=== PATIENT | male | born 1945 | race Caucasian/White ===

== ENCOUNTER 2017-03-28 18:59 | Observation (INO) ==
[2017-03-28] MEDS ORDERED: *HR* Dextrose 50 % in Water (Syg) 50 ML SYRINGE IVP ONE ×2 (19:58→21:31)
[2017-03-28] MEDS ORDERED: D5% in Water 1,000 ML IVC ONE (20:03)
[2017-03-28 20:31] LABS: Basophils # 0.1 K/mcL (0.0-0.2); Basophils % 0.8 %; Eosinophils # 0.1 K/mcL (0.0-0.6); Eosinophils % 0.9 %; Hematocrit 40.1 % (37.5-50.1); Hemoglobin 13.3 g/dL (12.9-16.9); Immature Granulocytes % 1.3 % (0-4); Lymphocytes # 1.5 K/mcL (0.6-4.6); Lymphocytes % 12.9 %; Mean Corpuscular HGB Conc 33.2 g/dL (31.6-35.5); Mean Corpuscular Hemoglobin 29.7 pg (28.0-33.3); Mean Corpuscular Volume 89.5 fL (83.0-100.0); Mean Platelet Volume 9.9 fL (9.4-12.4); Monocytes # 0.9 K/mcL (0.0-1.3); Monocytes % 7.7 %; Neutrophils # 8.9 K/mcL (1.6-8.9); Platelet Count 228 K/mcL (140-400); Red Blood Count 4.48 M/mcL (4.19-5.50); Segmented Neutrophils % 76.4 %
[2017-03-28 20:39] LABS: Prothrombin Time 11.2 Seconds (9.4-12.1)
[2017-03-28 20:47] LABS: BUN/Creatinine Ratio 21 (6-26); Blood Urea Nitrogen 15 mg/dL (8-23); Calcium 8.4 mg/dL (8.6-10.3); Carbon Dioxide 27 mEq/L (23-29); Chloride 104 mEq/L (98-107); Glucose 125 mg/dL (70-105); Osmolality,Calculated 290 (280-300); Potassium 3.6 mEq/L (3.5-5.1); Sodium 139 mEq/L (136-145); eGFR For Non-African Americans > 60 (> 60)
[2017-03-28 21:13] LABS: Bilirubin,Urine Negative (Negative); Blood,Urine Negative (Negative); Clarity,Urine Clear (Clear); Color,Urine Yellow (Yellow); Glucose,Urine (UA) Normal (Normal); Ketones,Urine Trace mg/dL (Negative); Leukocyte Esterase,Urine Negative (Negative); Nitrite,Urine Negative (Negative); PH,Urine 5.5 pH Units (5.0-8.0); Protein,Urine Negative (Neg-Trace); Urobilinogen,Urine Normal (Normal)
--- NOTE | 2017-03-28 21:41 | Emergency Department Note ---
Disposition Clinical Impression: Hypoglycemia Disposition: Admitted As Inpatient Condition: Fair General Adult HPI - General Chief complaint: ED Weakness Stated complaint: Hypoglycemia, 26 per EMS on arrival Source: patient, EMS Mode of arrival: EMS Limitations: no limitations Nursing Notes Reviewed: Yes Vital Signs Reviewed: Yes - History of Present Illness HPI Narrative: Patient presents to the ED via EMS with report of hypoglycemia. Per EMS initial fingerstick glucose was 26. They gave him oral glucose and he then became less responsive. After establishing IV they were able to give him half an amp of D50 with improvement in glucose to 120. On arrival here patient's glucose was 50 and he was starting to have a decrease in level of consciousness. He was immediately given another half amp of D50 with improvement in his sugar to 185. Per EMS they were called by a neighbor who had stopped by to borrow a cigarette from him and found him barely conscious. Patient is a known insulin-dependent diabetic. Patient states he had been feeling "bad" all day. He had some lightheadedness, nausea and tingling sensations. States he thought his sugar was low so he gave himself several doses of insulin throughout the day, thinking this would increase his glucose. Per EMS he had Novolin 70/30 pens at home. Patient states he does not remember how much insulin he took each time today. States he has been taking anywhere from 30 to 120 units 3-4 times a day over the past week because his sugars have been anywhere from 50 into the 200s. He cannot tell me how much insulin he is supposed to be taking. He does admit to having trouble checking his sugars and administering his insulin at home and gets confused about his doses. He lives alone. Per report his neighbor has found him once before when he was severely hypoglycemic. He denies any recent illness. He has no current physical complaints. Pain Scale: 0 - Related Data Previous Rx's Medication Instructions Recorded HYDROcodone/Acet 5/325 mg [[place] 1 tab PO Q6H #20 tab 05/11/16 5-325 mg] Allergies Allergy/AdvReac Type Severity Reaction Status Date / Time No Known Allergies Allergy Verified 01/20/15 12:23 Constitutional: Denies: fever, chills, weakness, weight change Eyes: Denies: eye pain, eye discharge, vision change ENT ED: Denies: ear pain, throat pain, dental pain, hearing loss, epistaxis, congestion, dysphagia Cardiovascular: Denies: chest pain, palpitations, dyspnea on exertion, edema, syncope Respiratory: Denies: cough, dyspnea, wheezes, hemoptysis, stridor Gastrointestinal: Denies: abdominal pain, nausea, vomiting, diarrhea, constipation, hematemesis, melena, hematochezia Genitourinary: Denies: urgency, dysuria, frequency, hematuria Musculoskeletal: Denies: back pain, neck pain, arthralgia, myalgia Integumentary: Denies: rash, abrasion, lesions Neurological: Denies: headache, weakness, numbness, paresthesias, confusion, abnormal gait, vertigo Psychiatric: Denies: anxiety, depression, suicidal thoughts, homicidal thoughts , auditory hallucinations, visual hallucinations Endocrine: Denies: fatigue Hematological/Lymphatic: Denies: easy bleeding, easy bruising Allergic/Immunologic: Denies: facial swelling, urticaria Past Medical History - Past Medical History Medical history: Reports: COPD, diabetes, hyperlipidemia, hypertension Psychiatric history: Reports: anxiety - Social History Smoking Status: Current every day smoker Smokeless Tobacco Status: No Alcohol use: Reports: none Drug use: Reports: none Physical Exam - General Limitations: no limitations General appearance: alert, in no apparent distress - Head Head exam: atraumatic, normocephalic, normal inspection - Eye Eye exam: Present: normal appearance, PERRL, EOMI - ENT ENT exam: normal exam, normal oropharynx, mucous membranes moist - Neck Neck exam: Present: normal inspection, full ROM, trachea midline - Chest Chest inspection: Present: normal inspection, symmetric chest wall rise - Respiratory Respiratory exam: Present: normal lung sounds bilaterally - Cardiovascular Cardiovascular exam: Present: regular rate, normal rhythm, normal heart sounds - Abdominal Exam Abdominal exam: Present: soft, Non-Tender. Absent: tenderness, distention, guarding, rebound, rigidity - Extremities Exam Extremities exam: Present: normal inspection, full ROM. Absent: tenderness, pedal edema - Back Exam Back exam: Present: normal inspection, full ROM. Absent: tenderness - Neurological Exam Neurological exam: Present: alert, oriented X3 - Psychiatric Psychiatric exam: Present: normal affect, normal mood - Skin Skin exam: Present: warm, dry, intact, normal color Course Course Narrative: Patient presents to the ED with recurrent hypoglycemia after inadvertently taking too much insulin at home due to confusion over what and why he should take his insulin. Sugars have improved after receiving D50 but then declined again. His next fingerstick here declined again to 61 and was given another half amp of D50 was given and improved to 95. He was started on D5W. Laboratory studies show a mild leukocytosis but no left shift. Electrolytes are normal. Chest x-ray is normal. EKG shows a normal sinus rhythm with first- degree block. No ischemic changes. Given his recurrent hypoglycemia he will require admission for continued close monitoring of his glucose with IV glucose supplementation as needed followed by eventual resumption of his insulin once an appropriate regimen is determined. I spoke to the patient regarding this and he is in agreement. I spoke to the hospitalist hr consultant, Dr. Chung, who has agreed to admit the patient. We will continue to monitor her sugars frequently and give IV glucose as needed in addition to continuing D5W. We will give the patient food as well to try to supplement his glucose. He will likely need home health services to assist him in properly administering his medication and monitoring his sugars. . Vital Signs Temperature 97.2 F L 03/28/17 19:00 Pulse Rate 78 03/28/17 19:00 Respiratory Rate 18 03/28/17 19:00 Blood Pressure 137/85 03/28/17 19:00 O2 Sat by Pulse Oximetry 94 03/28/17 19:00 Temperature 97.3 F L 03/29/17 01:32 Pulse Rate 90 03/29/17 01:32 Respiratory Rate 18 03/29/17 01:32 Blood Pressure 173/90 03/29/17 01:32 O2 Sat by Pulse Oximetry 93 03/29/17 01:57 Oxygen Delivery Oxygen Delivery Room Air Medical Decision Making - Medical Records Medical records reviewed: Yes I reviewed the patient's medical records. - Lab Data Lab results reviewed: Yes I reviewed the patient's lab results. Result diagrams: 03/28/17 20:25 03/28/17 20:25 Lab Results 03/28/17 03/28/17 03/28/17 Range/Units 19:04 19:07 19:55 WBC (4.3-11.1) K/mcL RBC (4.19-5.50) M/mcL Hgb (12.9-16.9) g/dL Hct (37.5-50.1) % MCV (83.0-100.0) fL MCH (28.0-33.3) pg MCHC (31.6-35.5) g/dL RDW (11.5-14.5) % Plt Count (140-400) K/mcL MPV (9.4-12.4) fL Immature Gran % (0-4) % Seg Neutrophils % % Lymphocytes % % Monocytes % % Eosinophils % % Basophils % % Neutrophils # (1.6-8.9) K/mcL Lymphocytes # (0.6-4.6) K/mcL Monocytes # (0.0-1.3) K/mcL Eosinophils # (0.0-0.6) K/mcL Basophils # (0.0-0.2) K/mcL PT (9.4-12.1) Seconds INR Sodium (136-145) mEq/L Potassium (3.5-5.1) mEq/L Chloride (98-107) mEq/L Carbon Dioxide (23-29) mEq/L BUN (8-23) mg/dL Creatinine (0.70-1.30) mg/dL Est GFR ( Amer) (> 60) Est GFR (Non-Af Amer) (> 60) BUN/Creatinine Ratio (6-26) Glucose (70-105) mg/dL POC Glucose 50 L 185 H 61 (58-89) Calculated Osmolality (280-300) Calcium (8.6-10.3) mg/dL Troponin I (< 0.04) ng/mL Urine Color (Yellow) Urine Clarity (Clear) Urine pH (5.0-8.0) pH Units Ur Specific [place] (1.010-1.025) Urine Protein (Neg-Trace) mg/dL Urine Glucose (UA) (Normal) mg/dL Urine Ketones (Negative) mg/dL Urine Blood (Negative) Urine Nitrite (Negative) Urine Bilirubin (Negative) Urine Urobilinogen (Normal) mg/dL Ur Leukocyte Esterase (Negative) Ur Culture Indicated? (NO) 03/28/17 03/28/17 03/28/17 Range/Units 20:25 20:25 20:25 WBC 11.6 H (4.3-11.1) K/mcL RBC 4.48 (4.19-5.50) M/mcL Hgb 13.3 (12.9-16.9) g/dL Hct 40.1 (37.5-50.1) % MCV 89.5 (83.0-100.0) fL MCH 29.7 (28.0-33.3) pg MCHC 33.2 (31.6-35.5) g/dL RDW 15.0 H (11.5-14.5) % Plt Count 228 (140-400) K/mcL MPV 9.9 (9.4-12.4) fL Immature Gran % 1.3 (0-4) % Seg Neutrophils % 76.4 % Lymphocytes % 12.9 % Monocytes % 7.7 % Eosinophils % 0.9 % Basophils % 0.8 % Neutrophils # 8.9 (1.6-8.9) K/mcL Lymphocytes # 1.5 (0.6-4.6) K/mcL Monocytes # 0.9 (0.0-1.3) K/mcL Eosinophils # 0.1 (0.0-0.6) K/mcL Basophils # 0.1 (0.0-0.2) K/mcL PT 11.2 (9.4-12.1) Seconds INR 1.0 Sodium 139 (136-145) mEq/L Potassium 3.6 (3.5-5.1) mEq/L Chloride 104 (98-107) mEq/L Carbon Dioxide 27 (23-29) mEq/L BUN 15 (8-23) mg/dL Creatinine 0.73 (0.70-1.30) mg/dL Est GFR ( Amer) > 60 (> 60) Est GFR (Non-Af Amer) > 60 (> 60) BUN/Creatinine Ratio 21 (6-26) Glucose 125 H (70-105) mg/dL POC Glucose (58-89) Calculated Osmolality 290 (280-300) Calcium 8.4 L (8.6-10.3) mg/dL Troponin I (< 0.04) ng/mL Urine Color (Yellow) Urine Clarity (Clear) Urine pH (5.0-8.0) pH Units Ur Specific [place] (1.010-1.025) Urine Protein (Neg-Trace) mg/dL Urine Glucose (UA) (Normal) mg/dL Urine Ketones (Negative) mg/dL Urine Blood (Negative) Urine Nitrite (Negative) Urine Bilirubin (Negative) Urine Urobilinogen (Normal) mg/dL Ur Leukocyte Esterase (Negative) Ur Culture Indicated? (NO) 03/28/17 03/28/17 03/28/17 Range/Units 20:25 20:40 21:05 WBC (4.3-11.1) K/mcL RBC (4.19-5.50) M/mcL Hgb (12.9-16.9) g/dL Hct (37.5-50.1) % MCV (83.0-100.0) fL MCH (28.0-33.3) pg MCHC (31.6-35.5) g/dL RDW (11.5-14.5) % Plt Count (140-400) K/mcL MPV (9.4-12.4) fL Immature Gran % (0-4) % Seg Neutrophils % % Lymphocytes % % Monocytes % % Eosinophils % % Basophils % % Neutrophils # (1.6-8.9) K/mcL Lymphocytes # (0.6-4.6) K/mcL Monocytes # (0.0-1.3) K/mcL Eosinophils # (0.0-0.6) K/mcL Basophils # (0.0-0.2) K/mcL PT (9.4-12.1) Seconds INR Sodium (136-145) mEq/L Potassium (3.5-5.1) mEq/L Chloride (98-107) mEq/L Carbon Dioxide (23-29) mEq/L BUN (8-23) mg/dL Creatinine (0.70-1.30) mg/dL Est GFR ( Amer) (> 60) Est GFR (Non-Af Amer) (> 60) BUN/Creatinine Ratio (6-26) Glucose (70-105) mg/dL POC Glucose 95 H (58-89) Calculated Osmolality (280-300) Calcium (8.6-10.3) mg/dL Troponin I < 0.03 (< 0.04) ng/mL Urine Color Yellow (Yellow) Urine Clarity Clear (Clear) Urine pH 5.5 (5.0-8.0) pH Units Ur Specific [place] 1.020 (1.010-1.025) Urine Protein Negative (Neg-Trace) mg/dL Urine Glucose (UA) Normal (Normal) mg/dL Urine Ketones Trace H (Negative) mg/dL Urine Blood Negative (Negative) Urine Nitrite Negative (Negative) Urine Bilirubin Negative (Negative) Urine Urobilinogen Normal (Normal) mg/dL Ur Leukocyte Esterase Negative (Negative) Ur Culture Indicated? NO (NO) 03/28/17 03/28/17 03/28/17 Range/Units 21:23 21:25 21:27 WBC (4.3-11.1) K/mcL RBC (4.19-5.50) M/mcL Hgb (12.9-16.9) g/dL Hct (37.5-50.1) % MCV (83.0-100.0) fL MCH (28.0-33.3) pg MCHC (31.6-35.5) g/dL RDW (11.5-14.5) % Plt Count (140-400) K/mcL MPV (9.4-12.4) fL Immature Gran % (0-4) % Seg Neutrophils % % Lymphocytes % % Monocytes % % Eosinophils % % Basophils % % Neutrophils # (1.6-8.9) K/mcL Lymphocytes # (0.6-4.6) K/mcL Monocytes # (0.0-1.3) K/mcL Eosinophils # (0.0-0.6) K/mcL Basophils # (0.0-0.2) K/mcL PT (9.4-12.1) Seconds INR Sodium (136-145) mEq/L Potassium (3.5-5.1) mEq/L Chloride (98-107) mEq/L Carbon Dioxide (23-29) mEq/L BUN (8-23) mg/dL Creatinine (0.70-1.30) mg/dL Est GFR ( Amer) (> 60) Est GFR (Non-Af Amer) (> 60) BUN/Creatinine Ratio (6-26) Glucose (70-105) mg/dL POC Glucose 441 H* 50 L 54 L (58-89) Calculated Osmolality (280-300) Calcium (8.6-10.3) mg/dL Troponin I (< 0.04) ng/mL Urine Color (Yellow) Urine Clarity (Clear) Urine pH (5.0-8.0) pH Units Ur Specific [place] (1.010-1.025) Urine Protein (Neg-Trace) mg/dL Urine Glucose (UA) (Normal) mg/dL Urine Ketones (Negative) mg/dL Urine Blood (Negative) Urine Nitrite (Negative) Urine Bilirubin (Negative) Urine Urobilinogen (Normal) mg/dL Ur Leukocyte Esterase (Negative) Ur Culture Indicated? (NO) 03/28/17 03/28/17 03/28/17 Range/Units 22:19 22:53 23:40 WBC (4.3-11.1) K/mcL RBC (4.19-5.50) M/mcL Hgb (12.9-16.9) g/dL Hct (37.5-50.1) % MCV (83.0-100.0) fL MCH (28.0-33.3) pg MCHC (31.6-35.5) g/dL RDW (11.5-14.5) % Plt Count (140-400) K/mcL MPV (9.4-12.4) fL Immature Gran % (0-4) % Seg Neutrophils % % Lymphocytes % % Monocytes % % Eosinophils % % Basophils % % Neutrophils # (1.6-8.9) K/mcL Lymphocytes # (0.6-4.6) K/mcL Monocytes # (0.0-1.3) K/mcL Eosinophils # (0.0-0.6) K/mcL Basophils # (0.0-0.2) K/mcL PT (9.4-12.1) Seconds INR Sodium (136-145) mEq/L Potassium (3.5-5.1) mEq/L Chloride (98-107) mEq/L Carbon Dioxide (23-29) mEq/L BUN (8-23) mg/dL Creatinine (0.70-1.30) mg/dL Est GFR ( Amer) (> 60) Est GFR (Non-Af Amer) (> 60) BUN/Creatinine Ratio (6-26) Glucose (70-105) mg/dL POC Glucose 76 122 H 146 H (58-89) Calculated Osmolality (280-300) Calcium (8.6-10.3) mg/dL Troponin I (< 0.04) ng/mL Urine Color (Yellow) Urine Clarity (Clear) Urine pH (5.0-8.0) pH Units Ur Specific [place] (1.010-1.025) Urine Protein (Neg-Trace) mg/dL Urine Glucose (UA) (Normal) mg/dL Urine Ketones (Negative) mg/dL Urine Blood (Negative) Urine Nitrite (Negative) Urine Bilirubin (Negative) Urine Urobilinogen (Normal) mg/dL Ur Leukocyte Esterase (Negative) Ur Culture Indicated? (NO) - Radiology Data Radiology results reviewed: Yes I reviewed the patient's radiology results. - EKG Data EKG #1 EKG shows normal: sinus rhythm Rate: normal Rhythm: NSR [place]/QRS: IVCD Heart block present: 1st Degree Interpretation: no acute changes
[2017-03-28] MEDS ORDERED: Naloxone 0.4 MG/ML INJ IVP PRN (22:27)
[2017-03-28] MEDS ORDERED: *HR* Dextrose 50 % in Water (Syg) 50 ML SYRINGE IVP PRN (22:30)
[2017-03-28] MEDS ORDERED: Dextrose Gel 15 GM/37.5 ML TUBE PO PRN ×2 (22:30)
[2017-03-28] MEDS ORDERED: D5% in Water 1,000 ML IVC PRN (22:30)
[2017-03-29] MEDS ORDERED: Dextrose Gel 15 GM/37.5 ML TUBE PO PRN ×2 (02:24)
[2017-03-29] MEDS ORDERED: *HR* Dextrose 50 % in Water (Syg) 50 ML SYRINGE IVP PRN (02:24)
[2017-03-29] MEDS ORDERED: Naloxone 0.4 MG/ML INJ IVP PRN (02:24)
[2017-03-29] MEDS ORDERED: D5% in Water 1,000 ML IVC PRN (02:24)
[2017-03-29] MEDS ORDERED: Insulin LISPRO 300 UNITS/3 ML VIAL SQ SCH ×3 (07:30→21:00)
[2017-03-29 10:34] VITALS: BP 164/78
--- NOTE | 2017-03-29 11:41 | Internal Med History&Physical ---
Date of Encounter: 03/29/17 Time of Encounter: 11:10 Assessment and Plan (1) Hypoglycemia Current visit: Yes Status: Acute Now resolved. He was given D50 in the emergency room and placed on IV D5. He has pulled his IV out stating he is going home. Internal Medicine - H&P: HPI Chief complaint: Hypoglycemia Admitted From: Emergency Dept Plans for Post Hospital Care: Home History of present illness: Mr. Calabrese is a 72 year old male who came to emergency room after he was found minimally responsive with hypoglycemia. He reports he had taken multiple doses of his 70/30 insulin and does not recall exactly how many injections or the exact dose used. He reports he has been checking blood sugars 3-4 times daily and using the 7030 as SSI coverage. He was found by EMS personnel to have blood sugar of 26. He was treated with IV D50 by squad members and emergency room and admitted to [facility] floor for ongoing care needs. Allograft. Reports receiving instructions from his PCP Dr. Lopez at his last office visit approximately 10 days ago on the instructions but he has not followed them up. He thinks he was diagnosed with the him to approximate 6 years ago. He does not follow a diabetic diet. His endocrine history is negative for known thyroid disease. Lipid profile showed total cholesterol 191, LDL 121, HDL 45, and total/HDL ratio 4.2. Past Med Surg Social Fam HX - Past Medical History Medical history: COPD, diabetes, hyperlipidemia, hypertension Psychiatric history: anxiety - Social History Smoking Status: Current every day smoker Smokeless Tobacco Status: No Alcohol use: none Drug use: none - Family History Mother Adopted: No Living Status: Internal Medicine - H&P: Meds Unable To Obtain [Unable to Obtain] 03/29/17 [History] 3 Allergy/AdvReac Type Severity Reaction Status Date / Time No Known Allergies Allergy Verified 01/20/15 12:23 All Systems PM: A 10-system review of systems was performed and is negative for pertinent findings except as documented above in the HPI. Review of systems: General: He states his weight has fluctuated significantly in the past 2 years Cardiovascular: He has history of hypertension but denies UT heart failure angina DVT or pulmonary embolus Respiratory: He has smoked since age 19 up to 1 pack per day. He reports a diagnosis of COPD but does not use home oxygen. GI: He denies disorders of his liver gallbladder or exocrine pancreas : He denies hematuria dysuria or kidney stones Neurologic: He denies large distribution strokes or seizures. Endocrine: As per history of present illness Hematology/oncology: Denies blood disorders cancers or anemia Psychiatric: He denies anxiety depression other mental health issues Muscle skeletal: He has DJD and chronic low back pain with degenerative disc disease. He has had left knee arthroscopy in the past. - Constitutional Vitals: Temp Pulse Resp BP Pulse Ox 97.9 F 91 18 164/78 95 03/29/17 10:31 03/29/17 10:31 03/29/17 10:31 03/29/17 10:31 03/29/17 10:31 Exam: Gen.: He is a well-developed well-nourished male who appears in no acute distress HEENT: Head is atraumatic and normocephalic. Eyes: EOMI. There is no scleral icterus. Mouth: Mucosa is moist. Neck: Supple and nontender. There is no thyromegaly or adenopathy noted. Heart: Regular without murmurs gallops or ectopics Lungs: No wheezes or crackles are heard. Abdomen: Soft and nontender. No masses or guarding are noted. Extremities: There is no edema of his ankles. He has minimal DJD changes of his hands Neurologic: Mental status: He is talkative and a good historian. Cranial nerves : Smile is symmetric. Forehead wrinkles bilaterally. Tongue protrudes midline. EOMI. Motor: There is no pronator drift. Cerebellar: Finger to nose intact bilaterally. Skin: Warm and dry Internal Med - H&P Results - Labs CBC & Chem 7: 03/28/17 20:25 03/28/17 20:25 - VTE Reasons for not Prescribing Prophylaxis: Treatment not Indicated - Low risk for VTE
[2017-03-29] MEDS: Insulin LISPRO 300 UNITS/3 ML VIAL SQ SCH (11:49)
--- NOTE | 2017-03-29 11:54 | Discharge Summary ---
Date of Encounter: 03/29/17 Time of Encounter: 11:10 - Discharge Diagnosis (1) Hypoglycemia Priority: Primary Status: Resolved - Discharge Medications Prescriptions: Insulin NPH Hum/Reg Insulin Hm [Novolin 70-30 100 Unit/ml Vial] 20 unit SQ BID 365 Days mls Home Medications: Insulin NPH Hum/Reg Insulin Hm [Novolin 70-30 100 Unit/ml Vial] 20 unit SQ BID 365 Days mls 03/29/17 [Rx] Allergies/Adverse Reactions: 3 Allergy/AdvReac Type Severity Reaction Status Date / Time No Known Allergies Allergy Verified 01/20/15 12:23 Date of admission: 03/28/17 23:40 Primary care physician: Connie Lemons - Patient Status Disposition: Home, Self-Care Condition: Fair Overall status at discharge: patient is progressing back to baseline - Discharge Instructions Follow Up With: Connie Lemons MD [Primary Care Provider] - 1 week (with [employer] IN[employer]IGATOR Jerri Almanza on SaturdayApr 02 at 2:45pm) - Diet and Activity Activity: resume usual activities as tolerated Diet: diabetic diet Hospital course: Mr. Calabrese is a 72 year old male who came to emergency room after he was found minimally responsive with hypoglycemia. He reports he had taken multiple doses of his 70/30 insulin and does not recall exactly how many injections or the exact dose used. He reports he has been checking blood sugars 3-4 times daily and using the 70/30 as SSI coverage. He was found by EMS personnel to have blood sugar of 26. He was treated with IV D50 by squad members and emergency room and admitted to [facility] for ongoing care needs. Reports receiving instructions from his PCP Dr. Lemons at his last office visit approximately 10 days ago on the instructions but he has not followed them. He thinks he was diagnosed with DM2 approximately 6 years ago. He does not follow a diabetic diet. Initial orders were written by the emergency room physician. I saw him on March 29 and performed the history physical and discharge. His blood sugars returned to a safe range. He removed his IV and was adamant he be discharged home. He was given some diabetic teaching by nursing staff. I instructed him to use Novolin 70/30 at a dose of 20 units twice a day before breakfast and supper. He will check blood sugars before meals and at bedtime and take the results to his PCP Dr. Lemons. He will follow up with her within one week. - Time Spent with Patient Total time spent providing and/or coordinating discharge services: - Constitutional Vitals: Temp Pulse Resp BP Pulse Ox 97.9 F 91 18 164/78 95 03/29/17 10:31 03/29/17 10:31 03/29/17 10:31 03/29/17 10:31 03/29/17 10:31 - VTE Reasons for not Prescribing Prophylaxis: Treatment not Indicated - Low risk for VTE
--- NOTE | 2017-03-31 11:04 | Electrocardiograph Report ---
[address] [place], [place] [address] Test Date: 2017-03-28 Pat Name: Huber Calabrese Department: [id number] Room: [facility] Gender: M Laminate Floor Installer: ROBBIN : 1945 Requested By: Diane Smalls Order Number: [id number] Reading MD: Latoya Barrett Measurements Intervals [place] Rate: 87 P: 62 SC: 231 QRS: 53 QRSD: 112 T: 60 QT: 365 QTc: 409 Interpretive Statements SINUS RHYTHM WITH FIRST DEGREE AV BLOCK INTRAVENTRICULAR CONDUCTION DELAY Electronically Signed On 03-31-2017 11:02:30 EST by Latoya Barrett
== END 2017-03-29 12:03 | disposition home or self-care (01) ==
LOC: INPPIK 18:59 → EMEROOPIK 18:59 → INPPIK 23:00
PROVIDERS: ADMIT Student in an Organized Health Care Education/Training Program; ATTEND Internal Medicine

== ENCOUNTER 2021-06-02 12:12 | Inpatient (IN) ==
[2021-06-02 13:00] LABS: Bilirubin,Urine Negative (Negative); Blood,Urine Trace-intact (Negative); Clarity,Urine Clear (Clear); Color,Urine Yellow (Yellow); Glucose,Urine (UA) Normal (Normal); Ketones,Urine Negative (Negative); Leukocyte Esterase,Urine Negative (Negative); Nitrite,Urine Negative (Negative); Protein,Urine 100 mg/dL (Neg-Trace); Urobilinogen,Urine Normal (Normal)
[2021-06-02 13:08] LABS: Amorphous Sediment,Urine Few per hpf (None-Few); Bacteria,Urine Few per hpf (None-Few); Granular Casts,Urine Few per lpf (None Seen); Hyaline Casts,Urine Few per lpf (None Seen); Mucus,Urine Few per lpf (None-Few); RBC,Urine 0-3 per hpf (0-3); Squamous Epithelial Cell,Urine Few per hpf (None-Few); WBC,Urine 0-3 per hpf (0-3)
[2021-06-02] MEDS: *HR* Dextrose 50 % in Water (Syg) 50 ML SYRINGE ONE ×2 (13:43→15:11)
[2021-06-02] MEDS ORDERED: Acetaminophen 325 MG TABLET PO ONE (13:58)
[2021-06-02] MEDS ORDERED: 0.9 % Sodium Chloride 1,000 ML IVC ONE (13:59)
[2021-06-02] MEDS: Dextrose Gel 15 GM/37.5 ML TUBE PO ONE ×2 (14:00→14:41)
[2021-06-02 14:20] LABS: Hematocrit 31.1 % (37.5-50.1); Hemoglobin 9.9 g/dL (12.9-16.9); Mean Corpuscular HGB Conc 31.8 g/dL (31.6-35.5); Mean Corpuscular Hemoglobin 27.6 pg (28.0-33.3); Mean Corpuscular Volume 86.6 fL (83.0-100.0); Mean Platelet Volume 9.8 fL (9.4-12.4); Platelet Count 213 K/mcL (140-400); Red Blood Count 3.59 M/mcL (4.19-5.50); Red Cell Distribution Width 14.5 % (11.5-14.5)
[2021-06-02 14:27] LABS: INR 1.4; Prothrombin Time 15.1 Seconds (9.4-12.1)
[2021-06-02 14:39] LABS: BUN/Creatinine Ratio 19 (6-26); Blood Urea Nitrogen 22 mg/dL (8-23); Calcium 8.3 mg/dL (8.6-10.3); Carbon Dioxide 28 mEq/L (23-29); Chloride 99 mEq/L (98-107); Glucose 56 mg/dL (70-105); Osmolality,Calculated 287 (280-300); Sodium 138 mEq/L (136-145); eGFR For African Americans > 60 (> 60); eGFR For Non-African Americans > 60 (> 60)
[2021-06-02 14:43] LABS: Lymphocytes # 1.3 K/mcL (0.6-4.6); Monocytes # 0.6 K/mcL (0.0-1.3); Neutrophils # 5.2 K/mcL (1.6-8.9); Platelet Estimate Normal (Normal)
[2021-06-02] MEDS ORDERED: D5% in 0.9% NACL 1,000 ML IVC SCH (14:45)
[2021-06-02] MEDS ORDERED: *HR* Dextrose 50 % in Water (Syg) 50 ML SYRINGE IVP STA (15:04)
[2021-06-02] MEDS ORDERED: Albuterol 2.5 MG/3 ML NEBULIZER IH PRN (17:11)
[2021-06-02] MEDS ORDERED: Mag Hydrox/Al Hydrox/Simeth 30 ML UDC PO PRN ×2 (17:17→18:19)
[2021-06-02] MEDS ORDERED: Acetaminophen 325 MG TABLET PO PRN (17:17)
[2021-06-02] MEDS ORDERED: Naloxone 0.4 MG/ML INJ IVP PRN ×2 (17:17→18:19)
[2021-06-02] MEDS ORDERED: Ondansetron 4 MG/2 ML VIAL IVP PRN ×2 (17:17→18:19)
[2021-06-02] MEDS ORDERED: D5% in Water 1,000 ML IVC PRN ×2 (17:23→18:19)
[2021-06-02] MEDS ORDERED: Dextrose 4 GM Chewable Tablets PO PRN ×4 (17:23→18:19)
[2021-06-02] MEDS ORDERED: *HR* Dextrose 50 % in Water (Syg) 50 ML SYRINGE IVP PRN ×2 (17:23→18:19)
[2021-06-02] MEDS ORDERED: cefTRIAXone 2,000 MG in 0.9 % Sodium Chloride Mini Bag 100 ML IVPB SCH (17:25)
[2021-06-02] MEDS ORDERED: Nicotine 21 MG PATCH.TD24 TD SCH (18:04)
[2021-06-02] MEDS ORDERED: D5% in 0.45% NACL 1,000 ML IVC SCH (18:15)
[2021-06-02] MEDS: D5% in 0.45% NACL 1,000 ML IVC SCH (18:33)
[2021-06-02] MEDS: Gabapentin 300 MG CAPSULE PO SCH (20:57)
[2021-06-02] MEDS: Acetaminophen 325 MG TABLET PO PRN (20:58)
[2021-06-02] MEDS ORDERED: Gabapentin 300 MG CAPSULE PO SCH (21:00)
[2021-06-03 02:04] LABS: Campylobacter by PCR Not detected (Not detect)
[2021-06-03 02:07] LABS: Adenovirus F 40/41 PCR Not detected (Not detect); Astrovirus PCR Not detected (Not detect); C.difficile Toxin A/B Gene PCR DETECTED (Not detect); Cryptosporidium by PCR Not detected (Not detect); Cyclospora cayetanensis PCR Not detected (Not detect); Entamoeba histolytica PCR Not detected (Not detect); Enteroaggregative E.coli(EAEC) Not detected (Not detect); Enteropathogenic E.coli(EPEC) Not detected (Not detect); Enterotoxigenic E.coli (ETEC) Not detected (Not detect); Giardia lamblia PCR Not detected (Not detect); Norovirus GI/GII PCR Not detected (Not detect); Plesiomonas shigelloides PCR Not detected (Not detect); Rotavirus A PCR Not detected (Not detect); Salmonella PCR Not detected (Not detect); Sapovirus PCR Not detected (Not detect); Shig/EnteroinvasiveE coli EIEC Not detected (Not detect); Shigalike tox-prod E coli STEC Not detected (Not detect); Vibrio PCR Not detected (Not detect); Vibrio cholerae PCR Not detected (Not detect); Yersinia enterocolitica PCR Not detected (Not detect)
[2021-06-03] MEDS: D5% in 0.45% NACL 1,000 ML IVC SCH ×2 (05:03→14:15)
[2021-06-03 08:00] LABS: Eosinophils # 0.1 K/mcL (0.0-0.6); Hematocrit 28.1 % (37.5-50.1); Hemoglobin 8.9 g/dL (12.9-16.9); Mean Corpuscular HGB Conc 31.7 g/dL (31.6-35.5); Mean Corpuscular Hemoglobin 27.7 pg (28.0-33.3); Mean Corpuscular Volume 87.5 fL (83.0-100.0); Mean Platelet Volume 10.6 fL (9.4-12.4); Platelet Count 207 K/mcL (140-400); Red Blood Count 3.21 M/mcL (4.19-5.50); Red Cell Distribution Width 14.7 % (11.5-14.5); White Blood Count 5.1 K/mcL (4.3-11.1)
[2021-06-03 08:15] LABS: BUN/Creatinine Ratio 19 (6-26); Blood Urea Nitrogen 22 mg/dL (8-23); Carbon Dioxide 29 mEq/L (23-29); Chloride 103 mEq/L (98-107); Glucose 125 mg/dL (70-105); Osmolality,Calculated 291 (280-300); Potassium 3.3 mEq/L (3.5-5.1); Sodium 138 mEq/L (136-145); eGFR For African Americans > 60 (> 60); eGFR For Non-African Americans > 60 (> 60)
[2021-06-03] MEDS: Acetaminophen 325 MG TABLET PO PRN (08:33)
[2021-06-03 09:32] LABS: Basophils # 0.2 K/mcL (0.0-0.2); Lymphocytes # 1.2 K/mcL (0.6-4.6); Monocytes # 0.4 K/mcL (0.0-1.3); Neutrophils # 3.2 K/mcL (1.6-8.9); Platelet Estimate Normal (Normal)
[2021-06-03] MEDS: Vancomycin Oral Soln 125 MG/2.5 ML UDC PO SCH ×4 (10:00→20:31)
[2021-06-03] MEDS: Gabapentin 300 MG CAPSULE PO SCH ×3 (10:00→20:31)
[2021-06-03] MEDS: cefTRIAXone 2,000 MG in 0.9 % Sodium Chloride Mini Bag 100 ML IVPB SCH (10:00)
[2021-06-03] MEDS: Nicotine 21 MG PATCH.TD24 TD SCH (10:00)
[2021-06-03] MEDS: amLODIPine 5 MG TABLET PO SCH (10:00)
[2021-06-04] MEDS ORDERED: *HR* OxyCODONE/APAP 10/325 TABLET PO PRN (07:25)
[2021-06-04] MEDS ORDERED: Insulin LISPRO 300 UNITS/3 ML VIAL SUBQ SCH (07:30)
[2021-06-04] MEDS: Gabapentin 300 MG CAPSULE PO SCH ×3 (07:36→19:33)
[2021-06-04] MEDS: GlipiZIDE 5 MG TABLET PO SCH ×2 (07:36→17:03)
[2021-06-04] MEDS: amLODIPine 5 MG TABLET PO SCH (07:36)
[2021-06-04] MEDS: Vancomycin Oral Soln 125 MG/2.5 ML UDC PO SCH ×4 (07:37→19:34)
[2021-06-04] MEDS: Nicotine 21 MG PATCH.TD24 TD SCH (07:37)
[2021-06-04] MEDS: Insulin LISPRO 300 UNITS/3 ML VIAL SUBQ SCH ×4 (07:37→19:34)
[2021-06-04] MEDS: cefTRIAXone 2,000 MG in 0.9 % Sodium Chloride Mini Bag 100 ML IVPB SCH (07:38)
[2021-06-04 07:59] LABS: Basophils # 0.1 K/mcL (0.0-0.2); Basophils % 1.3 %; Eosinophils # 0.2 K/mcL (0.0-0.6); Eosinophils % 3.9 %; Hemoglobin 8.9 g/dL (12.9-16.9); Immature Granulocytes % 3.3 % (0-4); Lymphocytes # 1.4 K/mcL (0.6-4.6); Lymphocytes % 29.7 %; Mean Corpuscular HGB Conc 31.8 g/dL (31.6-35.5); Mean Corpuscular Hemoglobin 27.5 pg (28.0-33.3); Mean Corpuscular Volume 86.4 fL (83.0-100.0); Mean Platelet Volume 10.5 fL (9.4-12.4); Monocytes # 0.7 K/mcL (0.0-1.3); Monocytes % 15.7 %; Neutrophils # 2.1 K/mcL (1.6-8.9); Platelet Count 223 K/mcL (140-400); Red Blood Count 3.24 M/mcL (4.19-5.50); Segmented Neutrophils % 46.1 %; White Blood Count 4.6 K/mcL (4.3-11.1)
[2021-06-04 08:51] LABS: BUN/Creatinine Ratio 18 (6-26); Blood Urea Nitrogen 16 mg/dL (8-23); Calcium 7.8 mg/dL (8.6-10.3); Carbon Dioxide 29 mEq/L (23-29); Chloride 104 mEq/L (98-107); Glucose 226 mg/dL (70-105); Magnesium 1.4 mg/dL (1.6-2.6); Osmolality,Calculated 296 (280-300); Potassium 3.3 mEq/L (3.5-5.1); Sodium 139 mEq/L (136-145); eGFR For African Americans > 60 (> 60); eGFR For Non-African Americans > 60 (> 60)
[2021-06-04] MEDS ORDERED: Gabapentin 300 MG CAPSULE PO SCH (09:00)
[2021-06-04 09:42] LABS: Iron < 10 mcg/dL (65-175); Transferrin 101 mg/dL (203-362)
[2021-06-04 09:46] LABS: Folate 15.6 ng/mL (3.0-16.0)
[2021-06-04] MEDS: Magnesium Oxide 400 MG TABLET PO SCH (19:34)
[2021-06-05] MEDS: *HR* Enoxaparin 40 MG/0.4 ML SYRINGE SQ SCH (05:50)
[2021-06-05 07:33] LABS: Hematocrit 29.1 % (37.5-50.1); Hemoglobin 9.2 g/dL (12.9-16.9); Mean Corpuscular HGB Conc 31.6 g/dL (31.6-35.5); Mean Corpuscular Hemoglobin 27.5 pg (28.0-33.3); Mean Corpuscular Volume 86.9 fL (83.0-100.0); Mean Platelet Volume 10.2 fL (9.4-12.4); Monocytes # 0.6 K/mcL (0.0-1.3); Platelet Count 244 K/mcL (140-400); Red Blood Count 3.35 M/mcL (4.19-5.50); White Blood Count 4.6 K/mcL (4.3-11.1)
[2021-06-05] MEDS: Gabapentin 300 MG CAPSULE PO SCH ×3 (08:05→19:42)
[2021-06-05] MEDS: GlipiZIDE 5 MG TABLET PO SCH ×2 (08:05→17:31)
[2021-06-05] MEDS: amLODIPine 5 MG TABLET PO SCH (08:05)
[2021-06-05] MEDS: Nicotine 21 MG PATCH.TD24 TD SCH (08:06)
[2021-06-05] MEDS: Magnesium Oxide 400 MG TABLET PO SCH ×2 (08:06→19:42)
[2021-06-05] MEDS: Vancomycin Oral Soln 125 MG/2.5 ML UDC PO SCH ×4 (08:06→19:42)
[2021-06-05] MEDS: Insulin LISPRO 300 UNITS/3 ML VIAL SUBQ SCH ×4 (08:18→19:42)
[2021-06-05 09:33] LABS: Eosinophils # 0.1 K/mcL (0.0-0.6); Lymphocytes # 1.2 K/mcL (0.6-4.6); Neutrophils # 2.8 K/mcL (1.6-8.9); Platelet Estimate Normal (Normal)
[2021-06-05 11:14] LABS: BUN/Creatinine Ratio 17 (6-26); Blood Urea Nitrogen 13 mg/dL (8-23); Carbon Dioxide 30 mEq/L (23-29); Chloride 106 mEq/L (98-107); Glucose 196 mg/dL (70-105); Magnesium 1.4 mg/dL (1.6-2.6); Osmolality,Calculated 302 (280-300); Potassium 3.3 mEq/L (3.5-5.1); Sodium 143 mEq/L (136-145); eGFR For African Americans > 60 (> 60); eGFR For Non-African Americans > 60 (> 60)
[2021-06-05] MEDS ORDERED: Budesonide/Formoterol 160/4.5 1 PUFF INH IH SCH (13:45)
[2021-06-05] MEDS: Budesonide/Formoterol 160/4.5 1 PUFF INH IH SCH (22:14)
[2021-06-06] MEDS: *HR* Enoxaparin 40 MG/0.4 ML SYRINGE SQ SCH (06:04)
[2021-06-06] MEDS: Gabapentin 300 MG CAPSULE PO SCH ×3 (09:14→20:39)
[2021-06-06] MEDS: Magnesium Oxide 400 MG TABLET PO SCH ×2 (09:14→20:39)
[2021-06-06] MEDS: GlipiZIDE 5 MG TABLET PO SCH ×2 (09:14→16:46)
[2021-06-06] MEDS: amLODIPine 5 MG TABLET PO SCH (09:14)
[2021-06-06] MEDS: Insulin LISPRO 300 UNITS/3 ML VIAL SUBQ SCH ×4 (09:15→20:40)
[2021-06-06] MEDS: Vancomycin Oral Soln 125 MG/2.5 ML UDC PO SCH ×4 (09:15→20:39)
[2021-06-06] MEDS: Nicotine 21 MG PATCH.TD24 TD SCH (09:15)
[2021-06-06] MEDS: Budesonide/Formoterol 160/4.5 1 PUFF INH IH SCH ×2 (09:22→21:54)
[2021-06-06 10:06] LABS: Hematocrit 31.4 % (37.5-50.1); Hemoglobin 9.9 g/dL (12.9-16.9); Mean Corpuscular HGB Conc 31.5 g/dL (31.6-35.5); Mean Corpuscular Hemoglobin 27.3 pg (28.0-33.3); Mean Corpuscular Volume 86.5 fL (83.0-100.0); Mean Platelet Volume 9.8 fL (9.4-12.4); Platelet Count 305 K/mcL (140-400); Red Blood Count 3.63 M/mcL (4.19-5.50); Red Cell Distribution Width 14.7 % (11.5-14.5); White Blood Count 8.4 K/mcL (4.3-11.1)
[2021-06-06 10:20] LABS: BUN/Creatinine Ratio 12 (6-26); Blood Urea Nitrogen 9 mg/dL (8-23); Carbon Dioxide 30 mEq/L (23-29); Chloride 103 mEq/L (98-107); Glucose 244 mg/dL (70-105); Osmolality,Calculated 297 (280-300); Potassium 3.7 mEq/L (3.5-5.1); Sodium 140 mEq/L (136-145); eGFR For African Americans > 60 (> 60); eGFR For Non-African Americans > 60 (> 60)
[2021-06-06 10:52] LABS: Basophils # 0.3 K/mcL (0.0-0.2); Lymphocytes # 1.7 K/mcL (0.6-4.6); Monocytes # 0.8 K/mcL (0.0-1.3); Platelet Estimate Normal (Normal)
[2021-06-07] MEDS: *HR* Enoxaparin 40 MG/0.4 ML SYRINGE SQ SCH (05:34)
[2021-06-07 07:22] LABS: Eosinophils # 0.2 K/mcL (0.0-0.6); Hematocrit 29.8 % (37.5-50.1); Hemoglobin 9.6 g/dL (12.9-16.9); Mean Corpuscular HGB Conc 32.2 g/dL (31.6-35.5); Mean Corpuscular Hemoglobin 27.5 pg (28.0-33.3); Mean Corpuscular Volume 85.4 fL (83.0-100.0); Mean Platelet Volume 9.8 fL (9.4-12.4); Monocytes # 1.4 K/mcL (0.0-1.3); Nucleated Red Blood Cells 0.2 /100 WBC (0); Platelet Count 332 K/mcL (140-400); Red Blood Count 3.49 M/mcL (4.19-5.50); White Blood Count 11.7 K/mcL (4.3-11.1)
[2021-06-07 07:42] LABS: BUN/Creatinine Ratio 12 (6-26); Blood Urea Nitrogen 9 mg/dL (8-23); Calcium 8.1 mg/dL (8.6-10.3); Carbon Dioxide 30 mEq/L (23-29); Chloride 102 mEq/L (98-107); Glucose 178 mg/dL (70-105); Osmolality,Calculated 291 (280-300); Potassium 3.8 mEq/L (3.5-5.1); Sodium 139 mEq/L (136-145); eGFR For African Americans > 60 (> 60); eGFR For Non-African Americans > 60 (> 60)
[2021-06-07] MEDS: GlipiZIDE 5 MG TABLET PO SCH (08:04)
[2021-06-07] MEDS: Magnesium Oxide 400 MG TABLET PO SCH (08:05)
[2021-06-07] MEDS: amLODIPine 5 MG TABLET PO SCH (08:05)
[2021-06-07] MEDS: Gabapentin 300 MG CAPSULE PO SCH (08:05)
[2021-06-07] MEDS: Nicotine 21 MG PATCH.TD24 TD SCH (08:05)
[2021-06-07] MEDS: Vancomycin Oral Soln 125 MG/2.5 ML UDC PO SCH ×2 (08:06→14:27)
[2021-06-07] MEDS: Insulin LISPRO 300 UNITS/3 ML VIAL SUBQ SCH ×2 (08:06→13:27)
[2021-06-07 08:18] LABS: Neutrophils # 6.1 K/mcL (1.6-8.9)
[2021-06-07 08:19] LABS: Platelet Estimate Normal (Normal)
[2021-06-07] MEDS: Budesonide/Formoterol 160/4.5 1 PUFF INH IH SCH (09:12)
[2021-06-07 12:16] LABS: Uric Acid 2.7 mg/dL (2.3-7.6)
[2021-06-07] MEDS ORDERED: Trolamine Salicylate/Aloe Vera 85 APPL/85 GM TUBE TP PRN (13:28)
[2021-06-07 14:26] VITALS: BP 112/53; PULSE 97; RESP 18; TEMP 98.9; O2SAT 97
== END 2021-06-07 15:53 | disposition short-term general hospital (02) | DRG 420 ==
LOC: INPPIK 12:12 → EMEROOPIK 12:12 → INPPIK 18:19
PROVIDERS: ADMIT Family Medicine; ATTEND Family Medicine